=== PATIENT | female | born 1970 | race African-American/Black ===

== ENCOUNTER 2017-11-10 22:08 | Emergency (ER) | payer OTHER ==
[~2017-11-10] VITALS: Ht 162.6 cm; Wt 53.1 kg
[2017-11-10] MEDS ORDERED: Morphine Sulfate 4mg/ml Inj (IV USE ONLY) IVP ONE (22:45)
[2017-11-10] MEDS ORDERED: Pantoprazole Inj IVP ONE (22:45)
--- NOTE | 2017-11-10 22:47 | Emergency Room Report ---
History of Present Illness General Chief Complaint: Abnormal Labs Source: Patient, Medical Record, EMS Present Illness HPI This is a 46-year-old -[place] female who has a history of gastric ulcer. She is bed bound with multiple nonhealing stasis ulcer in her lower extremities. She presents with chief complaint of low hemoglobin of 6.4 at the group home. Patient also has chronic pain. No fever chills but no nausea no vomiting. No rectal bleeding. No vomiting blood. She also has sacral ulcers. There is no fever chills. No nausea no vomiting. No other complaint. Pain is 10 out of 10. Allergies: Coded Allergies: PENICILLINS (Verified Allergy, Unknown, 11/10/17) Patient History Past Medical History: see triage record, old chart reviewed Past Surgical History: other Pertinent Family History: none Social History: Denies: smoking Now: No Immunizations: other Reviewed Nursing Documentation: PMH: Agreed; PSxH: Agreed Nursing Documentation-PMH Past Medical History: No History, Except For Hx Gastrointestinal Problems: Yes - Gastric ulcer Review of Systems Eye: Denies: eye pain, blurred vision ENT: Denies: ear pain, nose congestion, throat swelling Respiratory: Denies: cough, shortness of breath Cardiovascular: Denies: chest pain, palpitations Gastrointestinal: Denies: abdominal pain, diarrhea, nausea, vomiting Musculoskeletal: Reports: muscle pain, muscle stiffness; Denies: back pain, joint pain Skin: Denies: rash Neurological: Denies: headache, numbness Endocrine: Denies: increased thirst, increased urine Hematologic/Lymphatic: Denies: easy bruising All Other Systems: negative except mentioned in HPI Physical Exam Vital Signs Date Time Temp Pulse Resp B/P (MAP) Pulse Ox O2 Delivery O2 Flow Rate FiO2 11/10/17 22:01 98.7 81 18 97/63 97 Room Air 98.8 vitals unremarkable Sp02 EP Interpretation: reviewed, normal General Appearance: alert, cachetic Head: normocephalic, atraumatic Eyes: bilateral eye PERRL, bilateral eye EOMI ENT: hearing grossly normal, normal pharynx Neck: full range of motion, supple, no meningismus Respiratory: chest non-tender, lungs clear, normal breath sounds Cardiovascular #1: regular rate, rhythm, no murmur Gastrointestinal: normal bowel sounds, non tender, no mass, no organomegaly, no bruit, non-distended Musculoskeletal: back normal, other - Lower extremity edema with ulcerations Psychiatric: mood/affect normal Skin: warm/dry Procedures Critical Care Time Critical Care Time Critical care is mandated in this patient who presented with and severe anemia requiring blood transfusion. Patient require my urgent intervention to attenuate the risks of metabolic collapse which may lead to cardiovascular collapse and . Critical care time is 35 minutes excluding any reportable procedure. Critical care time included evaluation, multiple reevaluation, looking at old charts, interpreting laboratory and diagnostic data, discussing case with patient and family and consultants, and charting. Medical Decision Making Diagnostic Impression: Primary Impression: Anemia Qualified Codes: D64.9 - Anemia, unspecified Additional Impressions: Chronic pain Qualified Codes: G89.4 - Chronic pain syndrome Cachexia ER Course Patient presents with anemia. No evidence of active bleeding. Blood transfusion ordered. Her vertex he is probably secondary to neoplastic process from breast cancer. She is stable for transfer. I discussed the case with Dr. Hunter who accept pt for transfer to [facility] Lab Results Impression labs with anemia Rhythm Strip Diag. Results Rhythm Strip Time: 00:24 EP Interpretation: yes Rate: 82 Rhythm: NSR, no PVC's, no ectopy Chest X-Ray Diagnostic Results Chest X-Ray Diagnostic Results : Chest X-Ray Ordered: Yes # of Views/Limited/Complete: 1 View Indication: Shortness of Breath EP Interpretation: Yes Interpretation: no consolidation, no effusion, no pneumothorax, other - Right mastectomy Impression: No acute disease Electronically Signed by: Angel Diaz MD Last Vital Signs Date Time Temp Pulse Resp B/P (MAP) Pulse Ox O2 Delivery O2 Flow Rate FiO2 11/10/17 22:01 98.7 81 18 97/63 97 Room Air 98.8 Status: improved Disposition: XFER SHT-TRM HOSP Condition: Stable ANGEL DIAZ M.D. Nov 10, 2017 22:47
[2017-11-10 22:59] LABS: MEAN CORPUSCULAR VOLUME 83 FL (80-99); PLATELET COUNT 322 K/UL (150-450); RED BLOOD COUNT 2.66 M/UL (4.20-5.40); RED CELL DISTRIBUTION WIDTH 15.8 % (11.6-14.8)
[2017-11-10 23:08] LABS: INR 1.2 (0.9-1.1)
[2017-11-10] MEDS ORDERED: NORCO 5-325 TA1 EACH ORAL (23:17)
[2017-11-10] MEDS ORDERED: MYLANTA PO (23:17)
[2017-11-10] MEDS ORDERED: BENADRYL25 MG ORAL (23:17)
[2017-11-10 23:19] LABS: ANION GAP 4 mmol/L (5-15); BLOOD UREA NITROGEN 9 mg/dL (7-18); CALCIUM 7.9 MG/DL (8.5-10.1); CARBON DIOXIDE 28 MMOL/L (21-32); CHLORIDE 106 MMOL/L (98-107); CREATININE 0.7 MG/DL (0.55-1.30); POTASSIUM 3.5 MMOL/L (3.5-5.1); SODIUM 138 MMOL/L (136-145)
[2017-11-10] MEDS ORDERED: HYDRALAZINE HCL25 M1 ORAL (23:20)
[2017-11-10] MEDS ORDERED: ACETAMINOPHEN325 M1 ORAL (23:20)
[2017-11-10] MEDS ORDERED: LORATADINE10 M1 PO (23:20)
[2017-11-10] MEDS ORDERED: METHADONE HCL40 M1 PO (23:45)
[2017-11-10] MEDS ORDERED: LOVENOX10 M4 SUBQ (23:45)
[2017-11-10] MEDS ORDERED: ZOFRAN4 M3 ORAL (23:45)
[2017-11-10] MEDS ORDERED: GABAPENTIN100 MG ORAL (23:46)
[2017-11-10] MEDS ORDERED: PANTOPRAZOLE SO40 MG ORAL (23:46)
[2017-11-11 01:04] VITALS: BP 100/69
[2017-11-11 01:19] VITALS: BP 99/69
[2017-11-11 01:58] VITALS: BP 100/69
[2017-11-11 02:48] VITALS: BP 93/66
[2017-11-11 03:41] VITALS: BP 96/69
--- NOTE | 2017-11-11 09:29 | Diagnostic Imaging Report ---
Indication: Chest pain Technique: One view of the chest Comparison: Findings: Lungs and pleural spaces are clear. Heart size is normal . Patient is rotated to the left Impression: No acute process This essentially agrees with the [facility] preliminary report
== END 2017-11-11 03:10 | disposition short-term general hospital (02) ==
LOC: EDBD 22:08 → EMR 22:21
DX: D64.9 Anemia, unspecified (principal); G89.4 Chronic pain syndrome; L97.829 Non-pressure chronic ulcer of other part of left lower leg with unspecified severity; L97.819 Non-pressure chronic ulcer of other part of right lower leg with unspecified severity; Z74.01 Bed confinement status; Z88.0 Allergy status to penicillin
CPT/HCPCS: 36415; 71045; 80048; 85007; 85025; 85610; 85730; 86850; 86900; 86901; 86920; 96361; 96374; 96375; 99284; C9113; J2270; J2405; P9016